=== PATIENT | female | born 1980 | race Caucasian/White ===

== ENCOUNTER 2021-02-18 13:03 | Emergency (ER) | payer MEDICAID ==
[~2021-02-18] VITALS: Ht 172.7 cm; Wt 85.3 kg
[~2021-02-18 13:03] MED LIST: FAMO20TA37 PO
[2021-02-18 13:14] VITALS: BP 124/83
== END 2021-02-18 14:59 | disposition home or self-care (01) ==
LOC: ED 13:15
DX: U07.1 COVID-19 (principal); B34.9 Viral infection, unspecified
CPT/HCPCS: 99283; U0003; U0005